=== PATIENT | male | born 1955 | race Caucasian/White ===

== ENCOUNTER 2017-03-14 05:04 | Inpatient (IN) | payer BC, OTHER ==
[2017-02-09 14:47] VITALS: BMI 27.0
--- NOTE | 2017-02-09 15:20 | PAT Medication Instructions ---
Service Date Feb 09, 2017. Current Home Medication List Acetaminophen (Tylenol Arthritis Ext Rel), 1,300 MG PO BID Multivitamin (Multivitamin), 1 TAB PO QPM [potassium], 1 TAB PO 3XWEEK Medication Instructions For Your Scheduled Surgery - Hold the following medications the morning of surgery: [potassium], 1 TAB PO 3XWEEK - Take the following medications the morning of surgery with a sip of water: Acetaminophen (Tylenol Arthritis Ext Rel), 1,300 MG PO BID - Take the following medications as scheduled the night before surgery: Multivitamin (Multivitamin), 1 TAB PO QPM Acetaminophen (Tylenol Arthritis Ext Rel), 1,300 MG PO BID If you have any questions please call us at [phone] (Wanda Madrigal PA-C) or [phone] or [phone]
[2017-02-09 15:43] LABS: BASO % 0.5 %; BASO ABS # 0.03 K/uL (0-0.2); COMPLETE YES; EOS % 2.2 %; HEMATOCRIT 42.4 % (42-52); IG% 0.2 %; LYMPH % 33.2 %; LYMPH ABS # 1.83 K/uL (1.2-3.4); MEAN CELL VOLUME 91.8 fL (80-100); MEAN CORPUSCULAR HGB CONC 34.9 g/dl (32-36); MEAN PLATELET VOLUME 10.1 fL (7.4-10.4); MONO % 11.2 %; NEUT % 52.7 %; PLATELET COUNT 180 K/uL (130-400); RED BLOOD COUNT 4.62 M/uL (4.7-6.1); WHITE BLOOD COUNT 5.52 K/uL (4.8-10.8)
[2017-02-09 15:56] LABS: BLOOD UREA NITROGEN 21 mg/dl (7-18); BUN/CREATININE RATIO 22.1 (10-20); C-REACTIVE PROTEIN < 0.29 mg/dl (0-0.29); CALCIUM 8.9 mg/dl (8.5-10.1); CARBON DIOXIDE 29 mmol/L (21-32); CHLORIDE 109 mmol/L (98-107); CREATININE 0.94 mg/dl (0.60-1.40); GLUCOSE 89 mg/dl (70-99); POTASSIUM 4.1 mmol/L (3.5-5.1); SODIUM 143 mmol/L (136-145)
[2017-02-09 15:57] LABS: PARTIAL THROMBOPLASTIN RATIO 1.1; PROTHROMBIN TIME (PATIENT) 10.6 SECONDS (9.0-12.0)
--- NOTE | 2017-02-09 15:59 | DIAGNOSTIC IMAGING REPORT ---
CHEST PREADMISSION(PA/LAT) CLINICAL HISTORY: PAT preoperative evaluation COMPARISON STUDY: 08/01/2016 FINDINGS: The bones soft tissues and hemidiaphragms are normal. The cardiomediastinal silhouette is normal. The lungs are clear. The pulmonary vasculature is normal. IMPRESSION: Negative chest. Electronically signed by: Jeferson Rao M.D. 02/09/2017 3:57 PM Dictated Date/Time: 02/09/2017 3:53 PM
[2017-02-09 16:07] LABS: THYROID STIMULATING HORMONE 1.28 uIu/ml (0.300-4.500)
--- NOTE | 2017-03-09 17:41 | HISTORY & PHYSICAL EXAMINATION ---
DATE OF ADMISSION: 03/14/2017 CHIEF COMPLAINT: Right hip pain and discomfort. HISTORY OF PRESENT ILLNESS: The patient is a 61-year-old gentleman who is now about 7 months out from a left knee replacement. He has been bothered by right hip pain as well for quite some time. Now that his knee is replaced, his hips bother him more. He has become more active and having more and more hip pain. He has pain with any prolonged walking. He has difficulty putting his shoes and socks on. He describes mostly groin and thigh pain. He would now like to proceed with right hip replacement. PAST MEDICAL HISTORY: Significant for hypothyroidism. PREVIOUS SURGERIES: Include: 1. Low back surgery. 2. Left wrist surgery. 3. Left knee arthroscopy. 4. Cholecystectomy. 5. Left knee replacement done on 08/09/2016. ALLERGIES: None. CURRENT MEDICINES: 1. Centrum Silver. 2. Vitamin B12. 3. Potassium. 4. Methimazole 2.5 mg a day. SOCIAL HISTORY: A 61-year-old male. He works at [employer]. He is . One drink per day. [id number] history of smoking. FAMILY HISTORY: Noncontributory. REVIEW OF SYSTEMS: Negative for diabetes, neurologic problems, vascular problems or bleeding disorders. Denies any current chest pain or shortness of breath. Does have a history of smoking. No DVTs or PEs. PHYSICAL EXAMINATION: GENERAL: Reveals a healthy, pleasant middle-aged male. He looks to be in pretty good health. HEENT: Benign. NECK: Supple. No lymphadenopathy. LUNGS: Clear to auscultation. HEART: Has a regular rate and rhythm. ABDOMEN: Soft, nontender, nondistended. EXTREMITIES: Grossly neurovascularly intact except as follows: Examination of the right hip and leg reveals the patient walks with a slightly antalgic gait. Leg lengths clinically appear pretty equal. He does have pain with any type of hip motion, particularly internal rotation. He can internally rotate to neutral at best. Negative straight leg raise. NEUROLOGIC: He is neurologically intact. X-RAYS: X-rays of the right hip were reviewed. Show advanced right hip DJD. He has got complete loss of his superior joint space. ASSESSMENT: A 61-year-old gentleman now about 7 months out from left knee replacement with advanced right hip degenerative joint disease. He hips become more bothersome now that he has become more active with his knee. PLAN: We talked about treatment options. He would like to proceed with right hip replacement. We are going to take him to the operating room and do right total hip replacement. The risks and benefits of this procedure were explained to the patient including but not limited to DVT, PE, , infection, neurologic injury, vascular injury, bleeding problem, pain, limited range of motion, stiffness, failure to relieve symptoms, incomplete relief of symptoms, need for further surgery in the future, fracture, leg length inequality, nerve palsy, dislocation, need for revision surgery, etc. The patient understands and desires to proceed. Informed consent was obtained. The patient had preoperative workup. Chest x-ray was negative. EKG showed some sinus bradycardia. Labs were all normal. We will proceed as above. He should be able to be discharged to home using [facility] health program.
[2017-03-14] VITALS (21 sets, daily range): BP systolic 112–141; BP diastolic 67–82; PULSE 43–66; TEMP 36.7–37.5; O2SAT 18–99; Ht 180.3 cm; Wt 88.0 kg
[~2017-03-14] VITALS: Ht 180.3 cm; Wt 88.0 kg
[~2017-03-14 05:04] MED LIST: ACET1TAB84 PO; MULT-506 PO; potassium PO
[2017-03-14] MEDS ORDERED: FAMOTIDINE 20 MG TAB PO SCH (06:00)
[2017-03-14] MEDS ORDERED: CEFAZOLIN 2000 MG/60 ML D5W 60 ML IV SCH (06:00)
[2017-03-14] MEDS ORDERED: GABAPENTIN 300 MG CAP PO SCH (06:00)
[2017-03-14] MEDS ORDERED: LACTATED RINGER'S 1000ML IV SCH (06:00)
[2017-03-14] MEDS ORDERED: LACTATED RINGER'S 1000ML 500 ML IV ONE (06:00)
[2017-03-14] MEDS ORDERED: METOCLOPRAMIDE HCL 10 MG TAB PO SCH (06:00)
[2017-03-14] MEDS ORDERED: LACTATED RINGER'S 1000ML 1,000 ML IV SCH (06:00)
[2017-03-14] MEDS ORDERED: SCOPOLAMINE 1.5 MG TDSY TD SCH (06:00)
[2017-03-14] MEDS ORDERED: TRANEXAMIC ACID INJ 1,000 MG in SODIUM CHLORIDE 0.9% 100ML 100 ML IV SCH ×2 (06:00→14:30)
[2017-03-14] MEDS ORDERED: ACETAMINOPHEN 500 MG TAB PO SCH (06:00)
[2017-03-14] MEDS ORDERED: BUPIVACAINE/EPINEPHRINE 0.5% MPF 1:200,000 30 ML VIAL ONE (06:28)
[2017-03-14] MEDS ORDERED: BACITRACIN 50000 UNIT VIAL ONE (06:28)
[2017-03-14] MEDS ORDERED: ONDANSETRON INJ 2 MG/ML 2 ML VIAL ONE (06:36)
[2017-03-14] MEDS ORDERED: MIDAZOLAM HCL 1 MG/ML 2ML VIAL ONE ×2 (06:36→07:21)
[2017-03-14] MEDS ORDERED: PROPOFOL IV EMULSION 10 MG/ML 20 ML VIAL IV ONE ×3 (06:36→08:07)
[2017-03-14] MEDS ORDERED: FENTANYL CITRATE INJ 50 MCG/1 ML 2 ML VIAL ONE (06:37)
[2017-03-14] MEDS ORDERED: MoRPHine SULFATE PF 1 MG/ML 10 ML AMP/VIAL ONE (06:39)
--- NOTE | 2017-03-14 06:42 | History & Physical Bridge Note ---
H&P Re-Evaluation Bridge Note: I have examined the patient, reviewed the History & Physical and in the interval since the performance of the History & Physical I have noted the following changes of clinical significance: No changes noted
[2017-03-14] MEDS ORDERED: BUPIVACAINE 0.5 % 5 MG/1 ML PF 10ML VIAL ONE ×2 (06:44→08:22)
[2017-03-14] MEDS ORDERED: EpHEDrine SULFATE 50MG/5ML SYR ONE (07:13)
--- NOTE | 2017-03-14 08:25 | [facility] Post Operative Brief Note ---
Immediate Operative Summary Operative Date March 14, 2017. Pre-Operative Diagnosis Right Hip Degenerative Joint Disease Post-Operative Diagnosis Same as preop Procedure(s) Performed Right Total Hip Arthroplasty Uncemented Surgeon Dr. Casas Broomcorn Scraper Surgeon(s) Nestor Roy PA-C Estimated Blood Loss 200 ml Findings Right Hip DJD Fluids (cc crystalloids) 1600 cc Specimens A. Right Femoral Head Drains None Anesthesia Spinal Complication(s) None Disposition Recovery Room / PACU
[2017-03-14] MEDS ORDERED: METOCLOPRAMIDE HCL INJ 5 MG/ML 2 ML VIAL IV PRN (08:30)
[2017-03-14] MEDS ORDERED: ALUMINUM/MAGNESIUM/SIMETH (MAALOX MAX) 30 ML UDC PO PRN (08:30)
[2017-03-14] MEDS ORDERED: SILVER SULFADIAZINE 1% CR 50 GM JAR EXT PRN (08:30)
[2017-03-14] MEDS ORDERED: MAGNESIUM HYDROXIDE SUSP 30 ML UDC PO PRN (08:30)
[2017-03-14] MEDS ORDERED: TAMSULOSIN HCL 0.4 MG CAP PO PRN (08:30)
[2017-03-14] MEDS ORDERED: BISACODYL 10 MG SUPP PR PRN (08:30)
[2017-03-14] MEDS ORDERED: NALOXONE HCL INJ 1 MG in SODIUM CHLORIDE 0.9% 1000ML 1,000 ML IV PRN ×4 (08:50)
[2017-03-14] MEDS ORDERED: LACTATED RINGER'S 1000ML 500 ML IV PRN (08:50)
[2017-03-14] MEDS ORDERED: NALOXONE HCL INJ 0.08 MG in SYRINGE 1.8 ML IV PRN (08:50)
[2017-03-14] MEDS ORDERED: SODIUM CHLORIDE 0.9% 1000ML 1,000 ML IV PRN (08:50)
[2017-03-14] MEDS ORDERED: NALBUPHINE HCL INJ 10 MG/ML AMP IV PRN (09:00)
[2017-03-14] MEDS ORDERED: ONDANSETRON INJ 2 MG/ML 2 ML VIAL IV PRN (09:00)
[2017-03-14] MEDS ORDERED: MoRPHine SULFATE PF 1 MG/ML 10 ML AMP/VIAL EPI PRN (09:00)
[2017-03-14] MEDS ORDERED: NO NARCOTICS OR SEDATIVES SCH (09:00)
[2017-03-14] MEDS ORDERED: EpHEDrine SULFATE INJ 50 MG/ML AMP IV PRN (09:00)
[2017-03-14] MEDS ORDERED: PROMETHAZINE HCL INJ 25 MG in SODIUM CHLORIDE 0.9% 50ML 50 ML IV PRN (09:00)
[2017-03-14] MEDS ORDERED: NALOXONE HCL 0.4 MG/1 ML VIAL/CARP IV PRN (09:00)
[2017-03-14] MEDS ORDERED: MULTIVITAMIN TAB PO SCH (09:00)
[2017-03-14] MEDS ORDERED: DiphenhydrAMINE HCL 50 MG/ML VIAL IV PRN (09:00)
--- NOTE | 2017-03-14 09:01 | Anesthesiology Progress Note ---
Anesthesia Post Op Note Date & Time March 14, 2017 at 09:01 Vital Signs Pain Intensity: 0 Vital Signs Past 12 Hours Date Time Temp Pulse Resp B/P Pulse Ox O2 Delivery O2 Flow Rate FiO2 03/14/17 08:55 48 16 115/72 97 Nasal Cannula 2 03/14/17 08:45 57 16 133/71 100 Mask 10 03/14/17 08:35 60 16 128/74 100 Mask 10 03/14/17 08:25 36.5 58 16 124/66 100 Mask 10 03/14/17 05:40 36.7 48 18 125/81 99 Room Air Notes Mental Status: alert / awake / arousable, participated in evaluation Pt Amnestic to Procedure: Yes Nausea / Vomiting: adequately controlled Pain: adequately controlled Airway Patency, RR, SpO2: stable & adequate BP & HR: stable & adequate Hydration State: stable & adequate Neuraxial Anesthesia: was administered, sensory block is resolving Anesthetic Complications: no major complications apparent
--- NOTE | 2017-03-14 09:16 | DIAGNOSTIC IMAGING REPORT ---
AP PELVIS, CROSSTABLE LATERAL RIGHT HIP History: Right total hip arthroplasty. Degenerative arthritis. Postop. FINDINGS: The patient is status post a right total hip arthroplasty. The hardware is intact. No fracture or dislocation. Skin eunice are in place. IMPRESSION: Right total hip arthroplasty. No evidence for hardware complication Electronically signed by: Malcolm Graham M.D. 03/14/2017 9:15 AM Dictated Date/Time: 03/14/2017 9:14 AM
--- NOTE | 2017-03-14 09:44 | OPERATIVE REPORT ---
DATE OF OPERATION: 03/14/2017 SURGEON: Porfirio Casas MD HAND SHOE CUTTER: DOMINGO Field PREOPERATIVE DIAGNOSIS: Right hip degenerative joint disease. POSTOPERATIVE DIAGNOSIS: Same. PROCEDURE PERFORMED: Right ceramic on highly cross-linked polyethylene uncemented total hip arthroplasty. COMPLICATIONS: None. ESTIMATED BLOOD LOSS: 200 mL. FLUID REPLACEMENT: 1600 mL crystalloid fluid replacement. ANESTHESIA: Duramorph spinal. DRAINS: None. SPECIMENS: Right femoral head sent for pathology. OPERATIVE INDICATIONS: The patient is a 61-year-old very active gentleman who has had a long history of multiple lower extremity arthritic complaints and problems. He underwent a left knee replacement about 7 months ago and has done well from that. Since then, he has become more active and started to have more and more hip pain. X-rays revealed advanced hip arthritis with impingement. The patient elected to proceed with operative treatment. OPERATIVE FINDINGS: Operative findings revealed advanced right hip DJD. He had grade 4 [id number] disease of the femoral head and acetabulum. Pretty significant osteophytes around the femoral head. Moderate size joint effusion. OPERATIVE IMPLANTS: Operative implants consisted of: 1. A Biomet G7 size 56-mm acetabular shell. 2. Two 6.5 cancellous acetabular screws, one of 35 mm length and one at 25 mm in length. 3. An apex hole eliminator. 4. A highly cross-linked polyethylene liner with a 56 mm outer diameter and 36 mm inner diameter. 5. A DePuy size 12 large stature femoral stem. 6. A +12/36 mm ceramic articular ball. OPERATIVE PROCEDURE: The patient was taken to the operating room, identified and placed on the operating table in supine position. All contact areas were appropriately padded. IV antibiotics were provided by the anesthesia team. A spinal anesthetic had been implemented in the holding area. Bruno catheter was placed in sterile fashion. The patient was then placed in the left lateral decubitus position. An axillary roll was placed. Stulberg hip positioner was used for positioning. The right hip and leg were then prepped and draped in the usual sterile fashion. A posterolateral approach to the right hip was then performed through a curvilinear incision centered over the greater trochanter. Sharp dissection was carried out through the subcutaneous tissue down to the level of the IT band and gluteal fascia. The IT band and gluteal fascia were then incised longitudinally in line with skin incision. The underlying greater trochanteric bursa was excised. The piriformis and external rotators were tagged and taken off the posterior aspect of the femur. Great care was taken throughout the procedure to protect the sciatic nerve at all times. Posterior capsulotomy was then performed leaving a large flap for later repair. Hip was internally rotated and dislocated. Femoral neck osteotomy cut was made initially with the cut about 15 mm above the lesser trochanter. Femoral head was removed and sent for pathology. Attention was then drawn to the acetabulum. The acetabular labrum was excised. The pulvinar fat pad was excised. Sequential reaming of the acetabulum was then performed beginning with a size 45 and progressing up to a 55. A 56-mm Biomet G7 acetabular shell was then placed in about 40 degrees of lateral opening and 20 degrees of anteversion. It was fixed with two 6.5 cancellous acetabular screws. A trial liner was placed. Attention was then drawn to the femur. The proximal femur was entered with [employer] cutter followed by canal finder and lateralizing reamer. Sequential reaming of the femur was then performed beginning with a size 9 and progressing up to an 11.5. We started getting chatter at about 10. Therefore, we elected to stop for the 10 and the 12 implant even though it was initially planned for 13.5. We reamed to an 11.5. I then broached beginning with a size 10.5 small broach and progressing up to 12 large. A calcar reamer was used to smoothen off the calcar. I then trialed the hip. The soft tissue tension was a bit loose. The canal was tight enough that I did not think I could ream up to a 13.5 without compromising his bone to get the high offset implant in. Therefore, I elected to recut the neck and countersink this implant some so I could gain offset by increasing neck length. The trial implant was removed. I resected about 5 mm of the femoral neck. We broached again up to the 12 large broach. Calcar reamer was used to smoothen off the calcar. I then placed a +12 articular ball. Hip was fully stable in full extension and external rotation and flexion to 90 degrees and internal rotation to 50+ degrees. I elected to use these implants. It was still a little bit lax, but much improved. Once again, I did not think I could get these up to a 13.5, which was required for the high offset stem. We elected to place these implants. All trial implants were removed. An apex hole eliminator was placed. A highly cross-linked polyethylene liner was placed. A 12 large stature AML femoral stem was placed. We got excellent scratch fit. A +12/36 mm ceramic articular ball was placed. Hip was located and once again found to be stable. Attention was then drawn toward closing. The wound was irrigated with copious amounts of pulsatile lavage solution. I did inject locally with 60 mL of 0.5% Marcaine with epinephrine. The posterior capsule and external rotators were repaired through drill holes in the posterior trochanter with #2 Ti-Cron suture. The IT band and gluteal fascia were then closed with #1 PDS suture. The subcutaneous tissues were then closed in 2 layers with a deep layer #1 Vicryl suture and the subcutaneous tissues with 2-0 Dexon suture in a buried interrupted fashion. Skin was closed skin eunice. Leg was then cleaned and dried and a sterile dressing of Xeroform, 4 x 4's, ABD pad and Medipore tape was applied. The patient then transferred to the recovery room in stable condition. The patient tolerated the procedure well with no complications. All needle and sponge counts were correct at the end of the operation. I attest to the content of the Intraoperative Record and any orders documented therein. Any exceptions are noted below. ANIL
[2017-03-14] MEDS: D5W AND 1/2NSS + 20MEQ KCL 1,000 ML IV SCH ×2 (12:30→18:28)
[2017-03-14] MEDS: ASPIRIN 325 MG ECTAB PO SCH ×2 (12:32→20:31)
[2017-03-14] MEDS: FERROUS GLUCONATE 324 MG TAB PO SCH ×2 (12:32→18:27)
[2017-03-14] MEDS: KETOROLAC TROMETHAMINE 30 MG/ML VIAL IV. SCH ×3 (12:32→23:57)
[2017-03-14] MEDS: ACETAMINOPHEN 500 MG TAB PO SCH ×2 (13:48→22:18)
[2017-03-14] MEDS: CEFAZOLIN IV 2,000 MG in DEXTROSE 5% 50ML 50 ML IV SCH ×2 (13:48→22:18)
--- NOTE | 2017-03-14 15:30 | PROGRESS NOTE ---
DATE: 03/14/2017 SUBJECTIVE: A 61-year-old gentleman postop from a right total hip replacement. He is doing well. Not having any pain yet. No chest pain or shortness of breath. Not feeling dizzy or lightheaded. OBJECTIVE: VITAL SIGNS: Temperature 36.8. Vital signs stable. He has been bradycardic in the 50s. GENERAL: Reveals a pleasant, middle-aged male. He is sitting up in bed, looks pretty comfortable. LUNGS: Clear to auscultation. HEART: Regular rate and rhythm. ABDOMEN: Soft, nontender, nondistended. EXTREMITIES: Grossly neurovascularly intact except as follows: Examination of the right hip and leg reveals the leg to be well aligned. Dressing is clean, dry and intact. Thigh is soft and supple. He is neurologically intact. He can dorsiflex and plantarflex his foot appropriately. X-RAYS: X-rays of the right hip from the recovery room were reviewed. It shows a right uncemented total hip arthroplasty. Components looked to be in good position. There are no signs of problems. ASSESSMENT: A 61-year-old male postop from a right total hip replacement, doing well. His hip is located. He is neurologically intact. His pain is controlled. PLAN: 1. DVT prophylaxis including thigh-high TEDs, SCDs, and aspirin twice a day. 2. PT/OT. Weightbearing as tolerated. Right total hip protocol. 3. Pain control, doing pretty well with current pain regimen. 4. IV antibiotics x24 hours. 6. Disposition. He is hoping to be discharged to home likely with some home health once adequately recovered.
[2017-03-14] MEDS: CHECK SCOPOLAMINE PATCH PLACEMENT SCH ×2 (15:53→23:59)
[2017-03-14] MEDS: MULTIVITAMIN TAB PO SCH (20:30)
[2017-03-14] MEDS: DOCUSATE SODIUM 100 MG CAP PO SCH (20:31)
[2017-03-15] VITALS (8 sets, daily range): BP systolic 109–138; BP diastolic 62–77; PULSE 53–64; TEMP 36.5–37.4; O2SAT 92–97
[2017-03-15] MEDS: D5W AND 1/2NSS + 20MEQ KCL 1,000 ML IV SCH ×2 (00:01→06:39)
[2017-03-15] MEDS ORDERED: DiphenhydrAMINE HCL 50 MG/ML VIAL IV PRN (02:00)
[2017-03-15] MEDS ORDERED: DC INTRASPINAL MORPHINE SCH (02:00)
[2017-03-15] MEDS ORDERED: ZOLPIDEM TARTRATE 5 MG TAB PO PRN (02:00)
[2017-03-15] MEDS ORDERED: OXYCODONE HCL IR 5 MG TAB (IMMEDIATE RELEASE) PO PRN (02:00)
[2017-03-15] MEDS ORDERED: MoRPHine SULFATE 2 MG/ML CARP IV PRN (02:00)
[2017-03-15] MEDS ORDERED: ONDANSETRON INJ 2 MG/ML 2 ML VIAL IV PRN (02:00)
[2017-03-15] MEDS: KETOROLAC TROMETHAMINE 30 MG/ML VIAL IV. SCH ×4 (05:44→23:30)
[2017-03-15] MEDS: ACETAMINOPHEN 500 MG TAB PO SCH ×3 (05:45→22:27)
--- NOTE | 2017-03-15 08:00 | Anesthesiology Progress Note ---
Anesthesia Post Op Note Date & Time March 15, 2017 at 08:00 Vital Signs Pain Intensity: 2.0 Vital Signs Past 12 Hours Date Time Temp Pulse Resp B/P Pulse Ox O2 Delivery O2 Flow Rate FiO2 03/15/17 07:38 37.1 54 15 111/65 94 Room Air 03/15/17 03:47 37.2 59 16 109/62 97 Room Air 03/15/17 02:03 16 95 03/15/17 01:00 16 92 03/15/17 00:00 16 92 03/14/17 23:00 16 96 03/14/17 22:52 37.5 66 16 112/67 96 Room Air 03/14/17 22:00 14 90 03/14/17 21:00 16 91 03/14/17 20:15 16 97 Notes Mental Status: alert / awake / arousable, participated in evaluation Pt Amnestic to Procedure: Yes Nausea / Vomiting: adequately controlled Pain: adequately controlled Airway Patency, RR, SpO2: stable & adequate BP & HR: stable & adequate Hydration State: stable & adequate Neuraxial Anesthesia: was administered, sensory block resolved Anesthetic Complications: no major complications apparent
[2017-03-15 08:21] LABS: BASO % 0.3 %; BASO ABS # 0.02 K/uL (0-0.2); COMPLETE YES; EOS % 0.5 %; HEMATOCRIT 37.9 % (42-52); IG% 0.1 %; LYMPH % 19.1 %; LYMPH ABS # 1.48 K/uL (1.2-3.4); MEAN CELL VOLUME 93.8 fL (80-100); MEAN CORPUSCULAR HEMOGLOBIN 31.7 pg (25-34); MEAN CORPUSCULAR HGB CONC 33.8 g/dl (32-36); MONO % 12.3 %; NEUT % 67.7 %; PLATELET COUNT 163 K/uL (130-400); RED BLOOD COUNT 4.04 M/uL (4.7-6.1); WHITE BLOOD COUNT 7.75 K/uL (4.8-10.8)
[2017-03-15 08:54] LABS: BUN/CREATININE RATIO 13.8 (10-20); CREATININE 0.86 mg/dl (0.60-1.40); POTASSIUM 4.1 mmol/L (3.5-5.1)
[2017-03-15 08:55] LABS: CALCIUM 8.4 mg/dl (8.5-10.1)
[2017-03-15] MEDS: CHECK SCOPOLAMINE PATCH PLACEMENT SCH ×3 (09:46→23:31)
[2017-03-15] MEDS: FERROUS GLUCONATE 324 MG TAB PO SCH ×3 (09:46→17:56)
[2017-03-15] MEDS: ASPIRIN 325 MG ECTAB PO SCH ×2 (09:47→20:59)
[2017-03-15] MEDS: DOCUSATE SODIUM 100 MG CAP PO SCH ×2 (09:47→21:00)
[2017-03-15] MEDS: PANTOprazole SOD 40 MG TAB PO SCH (09:48)
[2017-03-15] MEDS: TAPENTADOL ER 50 MG TABCR PO SCH ×2 (10:09→20:59)
--- NOTE | 2017-03-15 15:38 | PROGRESS NOTE ---
DATE: 03/15/2017 DATE: 03/15/2017. SUBJECTIVE: This is a 61-year-old gentleman postop day 1 from right total hip replacement. He is doing pretty well. Pain is controlled. He says it is just a soreness. No chest pain or shortness of breath. Therapy is doing pretty well. OBJECTIVE: VITAL SIGNS: Temperature is 36.5. Vital signs stable. PHYSICAL EXAMINATION: GENERAL: Reveals a healthy, pleasant, middle-aged male. He is sitting up in his bed talking to his significant other and looks pretty comfortable. LUNGS: Clear to auscultation. HEART: Regular rate and rhythm. ABDOMEN: Soft, nontender, nondistended. EXTREMITY EXAMINATION: Grossly neurovascularly intact except as follows: Examination of the right hip and leg reveals the dressing to be clean, dry and intact. Leg lengths were equal. Hip is located. He is neurologically intact. LABORATORY DATA: Hemoglobin 12.8. Hematocrit 37.9. Electrolytes are stable. ASSESSMENT: A 61-year-old gentleman postop day 1 from right total hip replacement, doing pretty well. Pain is controlled. Therapy has gone pretty well. PLAN: 1. DVT prophylaxis including thigh-high TEDs, SCDs, and aspirin twice a day. 2. PT/OT. Weight bear as tolerated. Right total hip protocol. 3. Pain control. Doing pretty well with current pain regimen. 4. Disposition. He is planning to be discharged to home once medically stable and recovered adequately.
[2017-03-15] MEDS ORDERED: ASPEC325 PO (20:20)
[2017-03-15] MEDS ORDERED: RXC5 PO (20:20)
--- NOTE | 2017-03-15 20:22 | Discharge Instructions ---
Discharge Instructions Date of Service March 15, 2017. Admission Reason for Admission: Right Hip Degenerative Joint Disease Discharge Discharge Diagnosis / Problem: Right Hip Replacement Discharge Goals Goal(s): Decrease discomfort, Improve function, Increase independence, Improve disease control, Therapeutic intervention Activity Recommendations Activity Limitations: per Instructions/Follow-up section Weightbearing Status: Right weightbearing (Total Hip Precautions) . Current Hospital Diet Patient's current hospital diet: Regular Diet Discharge Diet Recommended Diet: Regular Diet Procedures Procedures Performed: Right Total Hip Arthroplasty Uncemented Pending Studies Studies pending at discharge: no Medical Emergencies . Who to Call and When: Medical Emergencies: If at any time you feel your situation is an emergency, please call 911 immediately. . Non-Emergent Contact Non-Emergency issues call your: Surgeon . "Provider Documentation" section prepared by Porfirio Casas. . VTE Core Measure Inpt VTE Proph given/why not?: Other Anticoagulation, T.E.D. Stockings, SCD's
[2017-03-15] MEDS: MULTIVITAMIN TAB PO SCH (20:59)
[2017-03-16] MEDS: ACETAMINOPHEN 500 MG TAB PO SCH (05:37)
[2017-03-16] MEDS: KETOROLAC TROMETHAMINE 30 MG/ML VIAL IV. SCH (05:37)
[2017-03-16] MEDS ORDERED: CLC100 PO (07:08)
[2017-03-16] MEDS: FERROUS GLUCONATE 324 MG TAB PO SCH (07:33)
--- NOTE | 2017-03-16 07:48 | PROGRESS NOTE ---
DATE: 03/16/2017 DATE: 03/16/2017. SUBJECTIVE: A 61-year-old gentleman postop day 2 from right total hip replacement. She is doing pretty well. Pain is controlled. No chest pain or shortness of breath. Not feeling dizzy or lightheaded. OBJECTIVE: VITAL SIGNS: Temperature 37.4. Vital signs stable. PHYSICAL EXAMINATION: GENERAL: Reveals a pleasant, middle-aged male. He is lying in bed, looks pretty comfortable. LUNGS: Clear to auscultation. HEART: Regular rate and rhythm. ABDOMEN: Soft, nontender, nondistended. EXTREMITY EXAMINATION: Grossly neurovascularly intact except as follows: Examination of the right hip and leg reveals the dressing to be clean, dry and intact. Hip is located. His thigh is soft and supple. Very minimal swelling. He is neurologically intact. ASSESSMENT: A 61-year-old gentleman postop day 2 from a right total hip replacement, doing well. PLAN: 1. DVT prophylaxis including thigh-high TEDs, SCDs, and aspirin twice a day. 2. PT/OT. Weight as tolerated. Right total hip protocol. 3. Pain control. Doing pretty well with current pain regimen. We told him to stick to Tylenol if that can control it to avoid constipation issues. 4. Disposition. Plan to discharge to home with some home health after therapy today.
[2017-03-16 08:48] VITALS: BP 128/65; PULSE 68; O2SAT 96
[2017-03-16] MEDS: DOCUSATE SODIUM 100 MG CAP PO SCH (09:28)
[2017-03-16] MEDS: ASPIRIN 325 MG ECTAB PO SCH (09:28)
[2017-03-16] MEDS: PANTOprazole SOD 40 MG TAB PO SCH (09:28)
[2017-03-16] MEDS: TAPENTADOL ER 50 MG TABCR PO SCH (09:44)
[2017-03-16 10:38] VITALS: BP 128/65; PULSE 68; TEMP 37.4; O2SAT 96
--- NOTE | 2017-03-23 15:13 | DISCHARGE SUMMARY ---
ADMITTING PHYSICIAN AND SURGEON: Dr. Casas. ADMITTING DIAGNOSIS: Right hip degenerative joint disease. SURGERY PERFORMED: Right total hip arthroplasty. SECONDARY DIAGNOSIS: Hypothyroidism. CONSULTS: None obtained. HISTORY AND PHYSICAL EXAMINATION: Well documented in the patient's chart. HOSPITAL COURSE: The patient was admitted on 03/14/2017 underwent total hip arthroplasty, tolerated the procedure well. There were no complications. He was transferred to the PACU postoperatively and later to the orthopedic floor for further care. He was given Ancef for antibiotic prophylaxis, NATALYA stockings, SCDs and aspirin for DVT prophylaxis. Hemoglobin, hematocrit and vital signs were monitored during his hospital stay and remained stable. He did not require any blood transfusions. There were no complications. By postoperative day 2, he was tolerating a general diet. Pain was controlled with oral pain medicine. He was participating in physical therapy and had no signs or symptoms of deep vein thrombosis. On postop day 2 he was discharged home and set up with home health services, given printed discharge instructions including prescriptions for aspirin 325 mg b.i.d., docusate and oxycodone. Continue his home medications, continue physical therapy, weightbearing as tolerated. NATALYA stockings, total hip precautions and follow up in 10-12 days or sooner if there are any problems or concerns.
== END 2017-03-16 11:25 | disposition home health service (06) | DRG 470 ==
LOC: ENRESERVTM → ENRESERVDT → C.ACU 05:04 → C.MSW 06:38
PROVIDERS: ADMIT Orthopaedic Surgery Sports Medicine; ATTEND Orthopaedic Surgery Sports Medicine
PROC: 0SR904A Replacement of Right Hip Joint with Ceramic on Polyethylene Synthetic Substitute, Uncemented, Open Approach (ICD-10-PCS; principal; 2017-03-14 07:00)
DX: M16.11 Unilateral primary osteoarthritis, right hip (principal); M25.451 Effusion, right hip; E03.9 Hypothyroidism, unspecified; J44.9 Chronic obstructive pulmonary disease, unspecified; F17.210 Nicotine dependence, cigarettes, uncomplicated; Z96.652 Presence of left artificial knee joint; Z79.899 Other long term (current) drug therapy

== ENCOUNTER 2022-03-23 06:11 | Observation (INO) ==
--- NOTE | 2022-02-21 08:37 | PAT Medication Instructions ---
Medication Instructions Date of Service February 21, 2022 Home Medications Medication Instructions Recorded tamsulosin 0.4 mg capsule (Flomax) 0.4 mg PO HS #10 cap 12/12/20 Centrum Silver 1 tab PO DAILY potassium gluconate 600 mg (99 mg) tablet 600 mg PO DAILY tamsulosin 0.4 mg capsule (Flomax) 0.4 mg PO HS Lactobacillus acidophilus 10 billion cell capsule (Probiotic) 10,000 mmu cells PO DAILY DO NOT take the morning of surgery Centrum Silver 1 tab PO DAILY potassium gluconate 600 mg (99 mg) tablet 600 mg PO DAILY Lactobacillus acidophilus 10 billion cell capsule (Probiotic) 10,000 mmu cells PO DAILY Take evening before surgery tamsulosin 0.4 mg capsule (Flomax) 0.4 mg PO HS Other Notes If you have any questions please call us at [phone] or [phone] or [phone] or [phone]
--- NOTE | 2022-02-22 08:29 | Anesthesiology Consultation ---
Date of Service February 22, 2022 Assessment & Plan (1) Encounter for pre-operative examination: - upcoming PCP pre-op appointment, 03/08. - COVID screening: Per assessment on 02/22/2022: Travel screen negative, no known COVID-19 positive contacts or current COVID-19 related symptoms in past 2 weeks. Patient vaccinated. Surgeon arranging preop COVID testing, scheduled 03/21/2022. Awaiting results. Chart Review Chart Review: Pending: Refer to Additional Notes / Consult section and Patient seen in Pre Admission Testing Teaching & Discussion Pre-Anesthesia Teaching/Discussion Notes: Instructed NPO after midnight before surgery, except medications with 15 cc of water. Medication instructions provided according to the PAT guidelines. History Surgery Operation Date: 03/23/22 10:55 Proposed Procedures p Right Total Knee Arthroplasty - Porfirio Casas MD Height/Weight Height: 5 ft 11 in Weight: 91.4 kg Allergies Allergy/AdvReac Type Severity Reaction Status Date / Time adhesive Allergy Severe Band-Aids; Verified 02/22/22 08:22 BLISTERS, SKIN TAKEN OFF WITH DRESSINGS Medications Home Medications Medication Instructions Recorded Confirmed Last Taken rqpkeeit-mrn-ktkjz acid 0.4 1 tab PO DAILY 09/30/18 02/21/22 12/12/20 mg-lycopene 300 mcg-lutein 250 mcg tablet (Centrum Silver) potassium gluconate 600 mg (99 mg) 600 mg PO DAILY 12/12/20 02/21/22 12/12/20 tablet tamsulosin 0.4 mg capsule (Flomax) 0.4 mg PO HS #10 cap 12/12/20 02/21/22 Unknown Lactobacillus acidophilus 10 10,000 mmu cells PO DAILY 02/21/22 02/21/22 Unknown billion cell capsule (Probiotic) Past Medical History Medical History (Updated 02/22/22 @ 08:44 by Yesika Roach PA-C) Esophageal reflux occ. Graves disease History of anesthesia reaction was combative when waking up from cholecystectomy > no other occurences after other procedures Hyperlipidemia Hypertension elevated per S PCP notes 11/2021 SBP 180s, home monitoring Hyperthyroidism no meds Kidney stones hx Osteoarthritis Prediabetes Recurrent epistaxis daily mupirocin ointment, following with [facility] Right knee DJD Patient denies h/o stroke, seizures, heart attack, heart failure, blood clots or blood transfusions. Exercise / Class Metabolic Activity II 4-5 Yardwork/Stairs/Walk up hill (denies CP or SOB with 1 FOS, walks up and down in mines) Past Family History Family History Sister Diabetes Past Surgical History Surgical History History of back surgery lumbar History of colonoscopy History of left knee replacement History of right hip replacement History of tooth extraction Hx of cholecystectomy Past Anesthesia History No Family Hx of Anesthesia Complications and Other (burning and redness at IV with propofol with a procedure several yrs ago-states anesthesiologist pushed med too quickly; denies other instances; delayed bowel movements [id number] resolves with a Cola-Cola) History of PONV No Hx of PONV and No Hx of Motion Sickness Social History Smoking Status: Former smoker Do You Dip or Chew Tobacco: No (quit 38 yrs ago) Smoking End Date: 2015 Hx Alcohol Use: Yes Alcohol type: beer alcohol intake frequency: holidays/special occasions only Hx Substance Use: No substance use type: does not use Review of Systems H/o snoring per partner, patient denies witnessed apneas. Patient denies chest pain, shortness of breath, dyspnea on exertion, fever, chills, cough, wheezing, or palpitations. Physical Exam Vital Signs Vitals BP 119/82 P 48 (Pt reports chronic bradycardia, at times low 40s/upper 30s attributed to his physical activity level by PCPs in the past per pt) TEMP 98.0 SP02 99% on RA RESP 16 Physical Full cervical extension range of motion without pain TMD 3.5 finger breaths Mallampati Score 2 Dentition: edentulous Lungs: normal respiratory effort. Clear throughout to auscultation, no adventit ious breath sounds Cardiac: regular rate and rhythm, no murmurs noted Carotid arteries: negative bruit bilat Lab Results Anesthesia Preop Results Results Anesthesia Widget: WBC 5.90 K/uL (4.8-10.8) 02/22/22 Hgb 15.1 g/dL (14.0-18.0) 02/22/22 Hct 43.8 % (42-52) 02/22/22 Plt 207 K/uL (130-400) 02/22/22 Na 138 mmol/L (136-145) 02/22/22 K 4.2 mmol/L (3.5-5.1) 02/22/22 Cl 107 mmol/L (98-107) 02/22/22 CO2 25 mmol/L (21-32) 02/22/22 BUN 26 mg/dl (6-23) H 02/22/22 Creat 0.91 mg/dl (0.6-1.4) 02/22/22 Glucose Level 87 mg/dl (70-99(Fasting)) 02/22/22 PT 10.5 Seconds (9.0-12.0) 02/22/22 PTT 29.3 Seconds (21.0-31.0) 02/22/22 INR 1.0 (0.9-1.1) 02/22/22 Blood Type O Negative 02/22/22 Antibody Screen NEGATIVE 02/22/22 Testing Electrocardiogram Date: 02/22/22 Sinus bradycardia with sinus arrhythmia, rate 46 bpm Chest X-Ray Date: 02/22/22 Lung volumes are normal. Lungs are clear. There is no pneumothorax or pleural effusion. Cardiac size is normal. Mediastinal contours are normal. There is no evidence for pulmonary edema.
--- NOTE | 2022-03-20 12:17 | History and Physical Report ---
DATE OF ADMISSION: 03/23/2022. CHIEF COMPLAINT: Right knee pain. HISTORY OF PRESENT ILLNESS: The patient is a 66-year-old gentleman known to me from a previous right hip replacement done in 2016 and the left knee replacement done in 2015. He now presents for treatm ent of his right knee. He has a long history of right knee pain and discomfort that has gotten signi ficantly worse over the past several years and more specifically in the past several months. Describ es global pain, but mostly medial pain. The more he is up on it, the more it hurts. He limps more a s the day goes on. He is very happy with his earlier joint replacements. He is limited by his knee pain and would like to have it fixed. PAST MEDICAL HISTORY: Significant for hypothyroidism. PAST SURGICAL HISTORY: Includes 1. Left knee replacement done 08/09/2016. 2. Right hip replacement 03/14/2017. 3. Back surgery in 1992. ALLERGIES: None. CURRENT MEDICATIONS: Includes: 1. Probiotic. 2. Centrum Silver. 3. Potassium. SOCIAL HISTORY: This is a 66-year-old male. He is quite healthy. He does not smoke. No significan t alcohol intake. FAMILY HISTORY: Noncontributory. REVIEW OF SYSTEMS: Negative for diabetes, neurologic problem, vascular problems or bleeding disorder s. No chest pain or shortness of breath. No history of DVT or PE. No bleeding problems. PHYSICAL EXAMINATION: GENERAL: Shows a pleasant middle-aged male. Looks to be in excellent health. HEENT: Benign. NECK: Supple. No lymphadenopathy. LUNGS: Clear to auscultation. HEART: Regular rate and rhythm. ABDOMEN: Soft, nontender, nondistended. EXTREMITIES: Grossly neurovascularly intact except as follows. Examination of the right knee reveals the patient walks with a slight bit of a limp. He has slight v arus alignment to his knee. He is tender over the medial joint line. He has bony hypertrophy medial ly. Small knee effusion. Range of motion 5-125. No instability. X-RAYS: X-rays of the right knee were reviewed. It shows advanced right knee degenerative joint dis ease. He has complete loss of medial joint space. He has got some osteophytes medially and laterall y. A little bit of subchondral sclerosis. The left knee replacement looks to be in good position wi thout signs of problems. ASSESSMENT: A 66-year-old gentleman status post a left knee replacement and right hip replacement in the past with advanced right knee degenerative joint disease. He has failed conservative treatment and would like to have his right knee fixed. PLAN: We will take him to the operating room and do right total knee replacement. Risks and benefit s of this procedure were explained to the patient include but not limited to DVT, PE, , infectio n, neurological injury, vascular injury, bleeding problem, pain, limited range of motion, stiffness, failure to relieve symptoms, incomplete relief of symptoms, need for further surgery in the future, f racture, leg length inequality, nerve palsy, etc. The patient understands and desires to proceed. I nformed consent was obtained. He did see Dr. Anderson at [facility] in [place] and has been cleared for surgery. He is planning to be discharged to home using [facility] program. Job ID: [id number]
[~2022-03-23 06:11] MED LIST changes: -ACET1TAB84 PO; +ACETAMINOPHEN 500 MG TAB PO SCH; +BUPIVACAINE LIPOSOME/PF 266 MG, BUPIVACAINE/EPINEPHRINE 50 ML, SODIUM CHLORIDE 0.9% 30 ... INFIL SCH; +FAMOTIDINE 20 MG TAB PO SCH; +LR 500ML BOLUS, THEN 15ML/HR IV SCH; +LR 60ML/HR IV SCH; -MULT-506 PO; +Scopolamine 1 MG TDSY TD SCH; +TRANEXAMIC ACID 1,000 MG **IV Intra-op IV SCH; +TRANEXAMIC ACID 1,000 MG **IV Pre-op IV SCH; +ceFAZolin 2000MG 2,000 MG/15 ML SYR IV SCH; -potassium PO
[2022-03-23] MEDS ORDERED: BUPIVACAINE 0.5 % 5 MG/1 ML PF 10ML VIAL ONE (06:31)
[2022-03-23] MEDS ORDERED: ROPIVACAINE 0.5% 5 MG/ML 30 ML VIAL ONE (06:32)
--- NOTE | 2022-03-23 06:53 | History & Physical Bridge Note ---
Date of Service March 23, 2022 History & Physical Bridge Note I have examined the patient, reviewed the History & Physical and in the interval since the performance of the History & Physical I have noted the following changes of clinical significance: no changes noted
[2022-03-23] MEDS ORDERED: fentaNYL citrate 100 MCG/2 ML VIAL ONE (07:56)
[2022-03-23] MEDS ORDERED: MIDAZOLAM HCL 1 MG/ML 2ML VIAL ONE (07:56)
[2022-03-23] MEDS ORDERED: ATROPINE SULFATE 0.1 MG/ML 10ML SYR IV PRN (08:18)
[2022-03-23] MEDS ORDERED: ePHEDrine sulfate 50 MG/ML AMP IV PRN (08:18)
[2022-03-23] MEDS ORDERED: fentaNYL citrate 100 MCG/2 ML VIAL IV PRN (08:18)
[2022-03-23] MEDS ORDERED: ONDANSETRON INJ 2 MG/ML 2 ML VIAL IV PRN ×2 (08:18→11:33)
[2022-03-23] MEDS ORDERED: SODIUM CHLORIDE 0.9% INJ 10 ML VIAL ONE (08:42)
[2022-03-23] MEDS ORDERED: BUPIVACAINE LIPOSOME 1.3% 266 MG/20 ML VIAL ONE (08:42)
[2022-03-23] MEDS ORDERED: BUPIVACAINE/EPINEPHRINE 0.25% 1:200,000 30 ML VIAL ONE (08:42)
[2022-03-23] MEDS ORDERED: GLYCOPYRROLATE 0.2 MG/ML VIAL ONE (09:40)
[2022-03-23] MEDS ORDERED: PROPOFOL IV EMULSION 10 MG/ML 20 ML VIAL IV ONE (09:40)
--- NOTE | 2022-03-23 10:34 | Operative Report ---
PG Post Operative Report Pre & Post Diagnosis Operation Date: 03/23/22 08:50 Pre-Op Diagnosis: Osteoarthritis Knee Right Post-Op Diagnosis: Osteoarthritis Knee Right I identified the patient and participated in the time-out.: Yes Procedure Operation Date: 03/23/22 08:50 Actual Procedures p Right Total Knee Arthroplasty(Right) - Porfirio Casas MD Surgeon Porfirio Casas MD Sanitation Worker [employer] Nestor Roy PA-C Estimated Blood Loss 50 Findings Consistent with Post-Op Diagnosis Operative findings revealed extensive grade 4 [id number]-ui-ytnq disease of the medial compartment. He had some spotty grade 4 changes laterally and in the patellofemoral joint. He had a varus deformity to his knee. Moderate-sized knee joint effusion. Osteophytes primarily in the medial compartment. Fluids 1800 cc Specimens Right knee sent for pathology Anesthesia Type Spinal MAC Complications none Disposition Accompanied Patient To Recovery: No Indications Patient is 66-year-old fairly active gentleman has had a long history of orthopedic and joint problems. He has left knee replacement right hip replacement in the past. He does develop increasing right knee pain discomfort. He failed conservative measures. He elected proceed with total knee arthroplasty. Description of Procedure Operative implants consist of: 1 Biomet Vanguard size 72.5 right posterior stabilized femoral component. 2. Biomet size 79 tibial tray. 3. 12 mm posterior stabilized polyethylene insert. 4. 34 x 8 and half all polypatella. The patient was taken to the operating, identified, placed on the operating table supine position protectors were properly padded. IV antibiotics tried by anesthesia team. A spinal anesthetic and abductor canal block had provided in the holding area. Bruno catheter was placed in sterile fashion. Right thigh tent was then placed in the right lower extremities and prepped and draped in usual sterile fashion. The right leg was elevated exsanguinated with use of an Esmarch in terms playset 300 mmHg. An anterior approach to the right knee was then performed to longitudinal incision centered over the patella. Sharp dissection was carried through subcutaneous tissue down the extensor mechanism. Medial parapatellar arthrotomy incision was made. Some subperiosteal dissection was carried out medially. The fat pad was resected from beneath patella tendon. Lateral patellofemoral ligament was released. Patella subluxated laterally and the knee was flexed. The osteophytes were taken off distal femur. The ACL and PCL were then released from distal femur and the tibia subluxated anteriorly. The external tibial alignment jig was then placed in the anterior face of the tibia and adjusted about 16 mm medially. Proximal tibial cut was made to remove about a millimeter or 2 of bone from the most deficient aspect medial tibial plateau. The tibia was then sized to a size 79. Attention drawn the femur. The distal femur was entered with a sharp drill. Intramedullary canal was suction. A right 6 degree valgus cutting guide was placed. The distal femoral cutting block was pinned in place. Distal femoral cut was made to take an additional 3 mm of bone off distal femur. The femur was then sized to a size 72.5. The AP cutting block was pinned parallel to the epicondylar axis which was 3 degrees of external rotation. The anterior cut, anterior chamfer, posterior cut, posterior chamfer cuts were made. The box cutting guide was placed in the just slight lateral box cut was made. The knee was flexed. The remnants of the medial and lateral menisci were excised. The osteophyte taken off the posterior aspect of femur. A trial femoral component was placed. The tibial tray was pinned in maximum external rotation and the drill and stem punch used to create defect in proximal tibia for the tibial tray. Knee was then trialed and the 12 mm insert fit most appropriately. Attention drawn the patella. The patella was cleaned of all soft tissues. Patella thickness measured 26 mm in thickness and was cut down to 15. Was sized to a size 34 patella. The lug holes were drilled for the 34 patella. The lateral osteophyte was removed. Patella button was placed. Knee was taken through range of motion patella tracked nicely within no thumbs test. Attention was then drawn to place the permanent components. All trial components were removed. Bone plug was placed in the distal femur limit blood loss. Double batch Palacos G cement was mixed. Biomet Vanguard size 72.5 right posterior stabilized femoral component, size 79 tibial tray, a 12 mm posterior stabilized polyethylene insert, and a 34 x 8 and half all polypatella then then cemented into place. The knee was brought out into full extension until cement hardened. Final cement check was then performed. The pericapsular tissues were injected with total 100 cc of combination of 20 cc of Exparel, 30 cc normal saline, 50 cc of quarter percent Marcaine with epinephrine. Patient did receive 1 g tranexamic acid. The tourniquet was then let down for final turn time of 50 minutes. Hemostasis reduced electrocautery. Extensor mechanism closed with a combination 1 PDS suture #1 Vicryl suture in [id number] fashion. Extensor mechanism checked found to be intact with subcutaneous tissue then closed with 2 Dexon suture in a buried interrupted fashion skin was closed skin eunice. Legs then cleaned and dried a sterile dressing was Xeroform, 4 x 4's, sterile cast padding, Aditya bandage were applied. The patient was then transferred to the recovery room in stable condition. Patient tolerated procedure well and there were no complications. Nestor Roy, my physician marketing assistant manager, was present for the entire procedure. His assistance was essential and required for appropriate patient positioning, prepping and draping, surgical exposure, performing the technical details of the operation, placement the implants, closure of the wound, and placement of the sterile bandage. I attest to the content of the Intraoperative Record and any orders documented therein. Any exceptions are noted below.
--- NOTE | 2022-03-23 11:09 | XRay Report ---
XR knee RT 1 or 2V routine CLINICAL HISTORY: Postoperative evaluation. COMPARISON: Knee radiographs February 10, 2022. FINDINGS: Alignment of the total right knee arthroplasty is anatomic. There is no periprosthetic fra cture or unexpected radiopaque foreign body. There are skin eunice. IMPRESSION: Expected findings following total right knee arthroplasty. ACT 112: Negative or not required by law. Electronically signed by: Miguel Ramsey M.D. 03/23/2022 11:08 AM
[2022-03-23] MEDS ORDERED: HYDROmorphone INJ 0.5 MG/0.5 ML SYR IV PRN (11:33)
[2022-03-23] MEDS ORDERED: bisacodyL 10 MG SUPP PR PRN (11:33)
[2022-03-23] MEDS ORDERED: METOCLOPRAMIDE HCL INJ 5 MG/ML 2 ML VIAL IV PRN (11:33)
[2022-03-23] MEDS ORDERED: oxyCODONE HCL IR 5 MG TAB (IMMEDIATE RELEASE) PO PRN (11:33)
[2022-03-23] MEDS ORDERED: ALUMINUM/MAGNESIUM SUSP 30 ML UDC PO PRN (11:33)
[2022-03-23] MEDS ORDERED: NALOXONE HCL 0.4 MG/1 ML VIAL/CARP IV PRN (11:33)
[2022-03-23] MEDS ORDERED: MAGNESIUM HYDROXIDE SUSP 30 ML UDC PO PRN (11:33)
--- NOTE | 2022-03-23 12:36 | Anesthesiology Progress Note ---
Date of Service March 23, 2022 Anesthesia Post Procedure Vital Signs Vital Signs: Temp Pulse Pulse Resp BP Pulse Ox 03/23/22 12:10 52 L 16 127/79 98 03/23/22 11:55 50 L 13 140/93 96 03/23/22 11:40 53 L 12 148/93 H 97 03/23/22 11:25 97.2 F L 57 L 14 146/86 H 98 03/23/22 11:15 57 L 16 143/93 H 98 03/23/22 11:05 59 L 13 148/89 H 96 03/23/22 10:55 60 14 146/82 H 95 03/23/22 10:45 65 20 136/77 100 03/23/22 10:35 62 17 128/79 99 03/23/22 10:29 97.3 F L 76 12 127/74 96 03/23/22 07:07 98.2 F 50 L 18 140/83 97 Transfer of Care Handoff Completed per policy Notes Mental Status: alert / awake / arousable and participated in evaluation Patient Amnestic to Procedure: Yes Nausea / Vomiting: adequately controlled Pain: adequately controlled Airway Patency, RR, SpO2: stable & adequate BP & HR: stable & adequate Hydration State: stable & adequate Neuraxial Anesthesia: was administered and sensory block is resolving Anesthetic Complications: no major complications apparent and Pt Satisfied with anesthetic care
[2022-03-23] MEDS: KETOROLAC 30 MG/ML VIAL IV SCH ×2 (13:21→18:21)
[2022-03-23] MEDS: SODIUM CHLORIDE 0.9% 1000ML 1,000 ML IV SCH (13:22)
[2022-03-23] MEDS: ACETAMINOPHEN 500 MG TAB PO SCH ×2 (14:02→21:15)
[2022-03-23] MEDS: Scopolamine CHECK PATCH PLACEMENT SCH (16:10)
[2022-03-23] MEDS: ASCORBIC ACID 500 MG TAB PO SCH (16:12)
[2022-03-23] MEDS ORDERED: TRANEXAMIC ACID / 0.7% NACL 1,000 MG/100 ML BAG IV SCH (16:30)
[2022-03-23] MEDS: ceFAZolin 2000MG 2,000 MG/15 ML SYR IV SCH (16:38)
[2022-03-23] MEDS ORDERED: TAMSULOSIN HCL 0.4 MG CAP PO SCH (21:00)
[2022-03-23] MEDS ORDERED: SENNA 8.6 MG TAB PO SCH (21:00)
[2022-03-23] MEDS: ASPIRIN 81 MG ECTAB PO SCH (21:14)
[2022-03-23] MEDS: DOCUSATE SODIUM 100 MG CAP PO SCH (21:14)
[2022-03-23] MEDS: TAPENTADOL HCL ER 50 MG TABCR PO SCH (21:15)
[2022-03-24] MEDS: ceFAZolin 2000MG 2,000 MG/15 ML SYR IV SCH (00:59)
[2022-03-24] MEDS: Scopolamine CHECK PATCH PLACEMENT SCH ×2 (00:59→08:12)
[2022-03-24] MEDS: KETOROLAC 30 MG/ML VIAL IV SCH ×2 (01:02→06:32)
[2022-03-24] MEDS: SODIUM CHLORIDE 0.9% 1000ML 1,000 ML IV SCH (01:02)
[2022-03-24] MEDS: ACETAMINOPHEN 500 MG TAB PO SCH (06:31)
[2022-03-24] MEDS ORDERED: dexAMETHasone 10 MG in SYRINGE 0 ML IV SCH (08:00)
[2022-03-24] MEDS: ASPIRIN 81 MG ECTAB PO SCH (08:13)
[2022-03-24] MEDS: ASCORBIC ACID 500 MG TAB PO SCH (08:13)
[2022-03-24] MEDS: DOCUSATE SODIUM 100 MG CAP PO SCH (08:13)
[2022-03-24] MEDS: TAPENTADOL HCL ER 50 MG TABCR PO SCH (08:22)
[2022-03-24 08:23] VITALS: BP 128/71; PULSE 49; TEMP 97.7; O2SAT 98
[2022-03-24 08:36] LABS: BUN Creatinine Ratio 15.2 (10-20); Calcium 8.8 mg/dl (8.5-10.1); Creatinine Clr Calc Pharmacy 85.3 ml/min; Est GFR (African American) 100.8 ml/min; Potassium 4.1 mmol/L (3.5-5.1)
[2022-03-24 08:38] LABS: Hematocrit (blood only) 39.6 % (42-52); Hemoglobin 13.5 g/dL (14.0-18.0); Mean Corpuscular Hemoglobin 31.6 pg (25-34); Mean Corpuscular Hgb Conc 34.1 g/dL (32-36); Mean Corpuscular Volume 92.7 fL (80-100); Mean Platelet Volume 10.3 fL (7.4-10.4); Platelet Count 178 K/uL (130-400); RDW Coefficient of Variation 12.6 % (11.5-14.5); RDW Standard Deviation 42.4 fL (36.4-46.3); Red Blood Count 4.27 M/uL (4.7-6.1); White Blood Count 8.55 K/uL (4.8-10.8)
[2022-03-24] MEDS ORDERED: ADVANCED PROBIOTIC 1250 MG CAPSULE PO SCH (09:00)
[2022-03-24] MEDS ORDERED: CEROVITE ADV FORMULA TAB PO SCH (09:00)
[2022-03-24] MEDS ORDERED: MULTIVITAMIN TAB PO SCH (09:00)
[2022-03-24] MEDS ORDERED: DOCUSATE SODIUM/SENNA 50/8.6MG TAB PO SCH (09:00)
[2022-03-24] MEDS ORDERED: NON-FORMULARY MEDICATION (Potassium Gluconate 600 mg (99 mg) Tablet) PO SCH (09:00)
--- NOTE | 2022-03-24 15:38 | Progress Notes ---
DATE OF SERVICE: 03/24/2022 SUBJECTIVE: A 66-year-old gentleman postoperative day 1 from a right knee replacement. He is doing well. Had a good night. Really not much pain. No chest pain or shortness of breath. Not feeling diz zy or lightheaded. OBJECTIVE: VITAL SIGNS: Temperature 36.5. Vital signs are stable. PHYSICAL EXAMINATION: GENERAL: Shows a pleasant middle-aged male. He is sitting up in his bedside chair, looks pretty com fortable. EXTREMITIES: Examination of the right leg reveals the dressing to be in place. There is no drainage . He can do a straight leg raise. He can dorsiflex and plantarflex his foot appropriately. He is n eurologically intact. LABORATORY: Hemoglobin 13.5. Hematocrit 39.6. Electrolytes are stable. ASSESSMENT: A 66-year-old gentleman postoperative day 1 from right knee replacement, doing quite wel l. His pain is controlled. He is neurologically intact. PLAN: 1. DVT prophylaxis includes thigh-high TEDs, SCDs, and aspirin twice a day. 2. PT, OT, weightbear as tolerated. Right total knee protocol. 3. Pain control, doing well with current pain regimen. Really not having much pain yet. 4. Disposition: Plan to discharge to home with some home health after therapy today. Job ID: [id number]
--- NOTE | 2022-03-27 18:28 | Discharge Summary ---
Date of Service March 27, 2022 Discharge Data Procedures Performed Operation Date: 03/23/22 08:50 Actual Procedures p Right Total Knee Arthroplasty(Right) - Porfirio Casas MD Hospital Course (1) Status post total right knee replacement: This patient is a 66 year old male admitted on 03/23/22 and underwent total knee arthroplasty. He tolerated the procedure well and there were no complications. Transferred to the PACU post op and later to the orthopedic floor for further care. He was given ancef for antibiotic prophylaxis. He was also given NATALYA stockings, SCDs, and aspirin for DVT prophylaxis. Hemoglobin, hematocrit, and vital signs were monitored during his hospital stay and remained stable. Did not require any blood transfusions. There were no complications during his hospital stay. By post op day #1 the patient was tolerating a regular diet, pain was reasonably controlled with oral pain medicine, and he was participating in physical therapy. On post op day #1 the patient was discharged home and set up with home health care. He was given printed discharge instructions including prescriptions for extra strength tylenol, aspirin, toradol, zofran, flomax, and oxycodone. Continue physical therapy, weight bearing as tolerated. Continue NATALYA stockings. Follow up approximately 2 weeks post op or sooner if there are problems or concerns. Coding Level of Care Code None Diagnoses Status post total right knee replacement Z96.651
== END 2022-03-24 14:38 | disposition home health service (06) ==
LOC: PACUINP 06:11 → ASU 06:11 → 3E 14:54